=== PATIENT | male | born 2005 | race Two or more races ===

== ENCOUNTER 2025-01-25 23:53 | Emergency (ER) | payer MEDICAID, SELFPAY ==
[2025-01-25 23:57] VITALS: BP 145/68; PULSE 99; RESP 18; TEMP 36.7; O2SAT 98; BMI 24.6
[2025-01-26 00:10] VITALS: PULSE 85; RESP 18; O2SAT 98
--- NOTE | 2025-01-26 00:32 | PD.EDADULT ---
ED General RME/HPI General Chief complaint: Extremity Problem,Nontraumatic Stated complaint: LEG PAIN Time Seen by Provider: 01/26/25 00:22 Arrival date/time: 01/25/25 23:53 Related Data Home Medications ?Medication ?Instructions ?Recorded ?Confirmed NO HX MED ##0 10/06/07 Previous Rx's ?Medication ?Instructions ?Recorded diphenhydramine HCl 25 mg capsule 50 mg (2 x 25 mg) PO TID PRN 07/15/22 (Benadryl) allergic reaction #30 caps epinephrine 0.3 mg/0.3 mL See Rx Instructions .Route 07/15/22 injection, auto-injector .COMPLEX #2 ea acetaminophen 500 mg capsule 1,000 mg (2 x 500 mg) PO Q6H PRN 01/04/24 fever or pain #30 caps Allergies Allergy/AdvReac Type Severity Reaction Status Date / Time ibuprofen (From Motrin) Allergy Intermediate Swelling Verified 01/26/25 00:10 of Lip/Tongue/Throat Review of Systems Review of Systems Systems Reviewed: All systems reviewed, normal except as documented ED Exam Narrative Physical exam: Physical Exam GENERAL: NAD, AAOx3 HEENT: Moist mucosa. Eyes open, symmetrical, & clear CARDIO: Heart RRR, no obvious murmurs PULM: No noted coughing/dyspnea CTA B/L, no R/W/R GI: Abdomen soft, nondistended, no pain on palpation. BSx4 SKIN/MSK/EXT: bilateral thighs tender to palpation, mild, no pain on palpation. Pedal pulses present B/L NEURO: AAOx3, no focal neuro deficits, able to move all 4 extremities Course Quality Measures none Orders Category Date Time Status Insert IV NOW Care 01/26/25 00:40 Active CBC Stat Lab 01/26/25 00:50 Completed CK [Creatine Kinase] Stat Lab 01/26/25 00:50 Completed CMP [Comprehensive Metabolic Panel] Stat Lab 01/26/25 00:50 Completed Lactic Acid [Lactate (Lactic Acid)] Stat Lab 01/26/25 00:50 Results Magnesium Stat Lab 01/26/25 00:50 Completed Ringers Lactated 1000 ml [Lactated Ringers] 1,000 ml Med 01/26/25 00:40 Discontinued IV 999 mls/hr Vital Signs Vital signs: Vital Signs Temperature 98.0 F 01/25/25 23:57 Pulse Rate 99 07/03/25 23:57 Respiratory Rate 18 01/25/25 23:57 Blood Pressure 145/68 H 01/25/25 23:57 Pulse Oximetry (%) 98 01/25/25 23:57 Discharge Plan Plan Patient Disposition: HOME (Self Care) Prescriptions/Referrals Prescriptions/Med Rec: No Action NO HX MED Qty: 0 diphenhydramine HCl [Benadryl] 25 mg capsule 50 mg PO TID PRN (Reason: allergic reaction) Qty: 30 0RF epinephrine 0.3 mg/0.3 mL auto-injector See Rx Instructions .ROUTE .COMPLEX Qty: 2 0RF Rx Instructions: 0.3 mL IM once prn anaphylaxis acetaminophen 500 mg capsule 1,000 mg PO Q6H PRN (Reason: fever or pain) Qty: 30 0RF Referrals: No Primary/Family,Physician [Primary Care Provider] - In 1 week Problem List Clinical Impression: Elevated lactic acid level Patient/Caregiver Discharge Instructions Additional Instructions: 1) please make sure to remain hydrated, especially when doing high intensity training, drink plenty of water before,during and after exercising 2) Remember to stretch before and after exercising 3) Should symptoms recur or worsen please return to the ED Print Language: Macedonian Stand Alone Forms: [place] Award Info., Patient Portal Info Letter MDM Narrative MDM hospital course: 20 y/o M with no pmhx presented to the ED after being unable to move his legs. Patient states he worked out in the morning his legs and then later in the afternoon was working out other body parts where he felt his legs cramp up and was unable to move them. He states hes never had these symptoms before. He has had cramps before but only in his thighs never on his thighs. He states he drinks enough water. He states its the first time hes done high intensity work outs back to back in a single day. He denies fever, chills, shortness of breath, palpitations, muscle dystrophy in the family. 0050 Labs reviewed shows some elevation in lactic acid and creatine kinase and creatinine, likely in the setting of dehydration due to overexertion with exercise 0051 IVFs administered Patient is safe to be discharged home. Clinical Information Provided by patient Medical Records Reviewed None Meds/Rx Considered, not Ordered None Labs/Rad/Tests considered, not Ordered None Chronic Illness/Social Conditions which may negatively complicate care or outcome(s)-explain: None or not applicable EKG EKG not done Lab Interpretation Labs: interpreted by me Imaging Imaging interpretation: none Medication Administration(s) Medication Administration History Discontinued Medications Lactated Ringer's (Lactated Ringers) 1,000 mls @ 999 mls/hr IV .Q1H1M ONE Stop: 01/26/25 01:40 Last Admin: 01/26/25 00:46 Dose: 999 mls/hr Documented By: SF Diagnosis Differential diagnosis: dehydration, muscle strain, muscular dystrophy Differential dx and/or dx ruled out: Dispositon Disposition: Discharge Home
[2025-01-26] MEDS: RINGERS LACTATED 1000 ML 1,000 ML 999 ML IV (00:46)
[2025-01-26 01:00] LABS: Basophils # (Auto) 0.0 Thou/mm3 (0.0-0.2); Basophils % (Auto) 0 % (0-2.5); Eosinophils # (Auto) 0.1 Thou/mm3 (0.0-0.5); Eosinophils % (Auto) 1 % (0-10); Hematocrit 38.4 % (41.0-53.0); Hemoglobin 13.7 g/dL (13.5-16.0); Immature Granulocytes Auto 0.02 Thou/mm3 (0.00-0.00); Lymphocytes # (Auto) 1.3 Thou/mm3 (1.0-4.8); Lymphocytes % (Auto) 16 % (10-50); Mean Corpuscular HGB Conc 35.7 g/dl (31.0-37.0); Mean Corpuscular Hemoglobin 29.1 pg (25.0-35.0); Mean Corpuscular Volume 82 fL (80-100); Monocytes # (Auto) 0.5 Thou/mm3 (0.0-0.8); Monocytes % (Auto) 6 % (0-12); Neutrophils # (Auto) 6.3 Thou/mm3 (1.8-7.7); Neutrophils % (Auto) 77 % (37-80); Nucleated Red Blood Cell # 0.00 Thou/mm3 (0.00-0.00); Nucleated Red Blood Cell % 0 /100 WBC (0); Platelet Count 231 Thou/mm3 (140-440); RDW Standard Deviation 39.1 fL (35.1-43.9); Red Blood Count 4.71 Miln/mm3 (4.50-5.90); White Blood Count 8.2 Thou/mm3 (4.5-11.0)
[2025-01-26 01:02] LABS: Lactate (Lactic Acid) 2.4 mMol/L (0.4-2.0)
[2025-01-26 01:19] LABS: Alanine Aminotransferase 21 U/L (10-49); Albumin, Serum 4.1 gm/dL (3.5-5.0); Albumin/Globulin Ratio 1.5 (1.2-2.2); Alkaline Phosphatase 113 U/L (46-116); Anion Gap 11 (7-16); Aspartate Amino Transferase 27 U/L (0-34); BUN/Creatinine Ratio 13 Ratio (12-20); Bilirubin,Total 0.6 mg/dL (0.3-1.2); Blood Urea Nitrogen 18 mg/dL (9-23); Calcium 8.9 mg/dL (8.3-10.6); Calcium (Corrected) 8.9 mg/dL (8.5-10.1); Carbon Dioxide 24.8 mMol/L (20.0-31.0); Chloride 104 mMol/L (98-107); Creatine Kinase 411 U/L (34-171); Creatinine (Component) 1.4 mg/dL (0.6-1.3); Estimated Creatinine Clearance 81.4 mL/min (>60); Globulin 2.7 gm/dL (2.3-3.5); Glucose 87 mg/dL (74-106); Magnesium 1.9 mg/dL (1.6-2.6); Osmolality,Calculated 280 (275-295); Potassium 3.7 mMol/L (3.4-5.1); Sodium 140 mMol/L (136-145); Total Protein 6.8 gm/dL (5.7-8.2); eGFR > 60 See Note
[2025-01-26 02:06] VITALS: BP 134/60; PULSE 75; RESP 17; TEMP 36.6; O2SAT 98
[2025-01-26 03:58] LABS: Reflex Lactate? Y
== END 2025-01-26 02:06 | disposition home or self-care (01) ==
PROVIDERS: Emergency Provider Student in an Organized Health Care Education/Training Program
DX: E87.20 Acidosis, unspecified (principal)
CPT/HCPCS: 36415; 80053; 82550; 83605; 83735; 85025; 96360; 99284; J7120